=== PATIENT | male | born 2000 | race Caucasian/White ===

== ENCOUNTER → 2022-11-29 | Outpatient (REF) | payer OTHER | LOC: M LAB REF 17:02 | PROVIDERS: ATTEND Nurse Practitioner Family | DX: J03.90 Acute tonsillitis, unspecified (principal) ==

== ENCOUNTER → 2022-12-02 | Outpatient (CLI) | payer OTHER ==
[2022-12-02 11:19] LABS: MONO SCRN POSITIVE (NEGATIVE)
== END ==
LOC: M LAB 10:25
PROVIDERS: ATTEND Physician Assistant Medical
DX: J03.90 Acute tonsillitis, unspecified (principal)